=== PATIENT | male | born 1985 | race African-American/Black ===

== ENCOUNTER 2017-11-06 16:00 | Emergency (ER) | payer SELFPAY ==
[~2017-11-06] VITALS: Ht 177.8 cm; Wt 87.1 kg
[2017-11-06 17:06] VITALS: BP 123/63
== END 2017-11-06 19:07 | disposition left against medical advice (07) ==
LOC: ER 16:07
DX: Z04.1 Encounter for examination and observation following transport accident (principal); Z53.21 Procedure and treatment not carried out due to patient leaving prior to being seen by health care provider; V49.69XA Unspecified car occupant injured in collision with other motor vehicles in traffic accident, initial encounter; Y93.89 Activity, other specified; Y99.8 Other external cause status; Y92.89 Other specified places as the place of occurrence of the external cause

== ENCOUNTER 2019-02-04 19:22 | Emergency (ER) | payer SELFPAY ==
[~2019-02-04] VITALS: Ht 177.8 cm; Wt 97.5 kg
[2019-02-05 00:52] VITALS: BP 147/64
[2019-02-05] MEDS ORDERED: DexAMETHasone SOD PHOS 10MG/1ML VIAL INJ IM ONE (01:15)
[2019-02-05] MEDS ORDERED: BACLOFEN 10 MG TAB PO ONE (01:15)
[2019-02-05] MEDS ORDERED: ACETAMINOPHEN/CODEINE#3 (300/30mg) TAB PO ONE (01:15)
== END 2019-02-05 01:10 | disposition home or self-care (01) ==
LOC: ER 19:25
DX: S33.5XXA Sprain of ligaments of lumbar spine, initial encounter (principal); Z88.0 Allergy status to penicillin; X50.0XXA Overexertion from strenuous movement or load, initial encounter; Y93.89 Activity, other specified; Y99.8 Other external cause status; Y92.89 Other specified places as the place of occurrence of the external cause
CPT/HCPCS: 72131; 96372; 99284; J1100

== ENCOUNTER 2023-03-09 23:05 | Emergency (ER) | payer SELFPAY ==
[~2023-03-09] VITALS: Ht 177.8 cm; Wt 87.6 kg
[2023-03-10 00:33] VITALS: BP 154/68
[2023-03-10] MEDS ORDERED: IBUP800T26 PO (00:35)
[2023-03-10] MEDS ORDERED: DOCU100T15 PO (00:35)
[2023-03-10] MEDS ORDERED: KETOROLAC TROMETH 30 MG/ML 1ML VIAL IM ONE (00:45)
== END 2023-03-10 00:45 | disposition home or self-care (01) ==
LOC: ER 23:05
DX: K64.9 Unspecified hemorrhoids (principal); F12.90 Cannabis use, unspecified, uncomplicated; Z88.0 Allergy status to penicillin
CPT/HCPCS: 96372; 99283; J1885